=== PATIENT | male | born 2000 | race Caucasian/White ===

== ENCOUNTER 2021-04-16 16:50 | Emergency (ER) | payer OTHER, MEDICAID, SELFPAY ==
--- NOTE | ~2021-04-16 | XR_ITS ---
EXAMINATION: XR CHEST CLINICAL INFORMATION: Chest pain. COMPARISON: None TECHNIQUE: AP view of the chest was obtained. FINDINGS: No significant abnormality is noted involving the heart, lungs, mediastinum, bony thorax or soft tissues. XR/XR chest 1V IMPRESSION: Unremarkable examination.
[2021-04-16 16:52] VITALS: BP 122/70; PULSE 85; RESP 18; TEMP 36.8; O2SAT 97; BMI 20.3
--- NOTE | 2021-04-16 16:56 | ECG_ITS ---
Test Reason : CHEST PAIN Blood Pressure : / mmHG Vent. Rate : 079 BPM Atrial Rate : 079 BPM P-R Int : 146 ms QRS Dur : 090 ms QT Int : 340 ms P-R-T Axes : 074 070 051 degrees QTc Int : 389 ms Normal sinus rhythm with sinus arrhythmia Normal ECG No previous ECGs available Referred By: Generic ED Physician Electronically Signed By:LEE ANN LUTHER
[2021-04-16 17:13] LABS: Hematocrit 48.7 % (42-52); Hemoglobin 16.6 g/dl (14.0-18.0); Mean Corpuscular HGB Conc 34.1 g/dl (31.0-36.0); Mean Corpuscular Hemoglobin 28.8 pg (27.0-33.0); Mean Corpuscular Volume 84.4 fL (80-98); Mean Platelet Volume 10.5 fL (9.4-12.4); Platelet Count 216 X10*3/uL (160-400); Red Blood Count 5.77 X10*6/uL (4.60-5.80); White Blood Count 8.6 X10*3/uL (4.8-10.8)
[2021-04-16 17:27] LABS: Anion Gap 13 (12-20); Blood Urea Nitrogen 10 mg/dL (9-16); Calcium 10.1 mg/dL (8.4-10.2); Carbon Dioxide 26 mmol/L (22-29); Chloride 105 mmol/L (96-108); Creatinine Clr Calc Pharmacy 120.6; Estimated Glomerular Filt Rate > 60; Glucose Random 89 mg/dL (60-115); Potassium 4.4 mmol/L (3.3-5.1); Sodium 140 mmol/L (135-145)
[2021-04-16 17:34] LABS: Troponin-I High Sensitivity < 3.5 ng/L (<3.5-35.0)
[2021-04-16 20:06] VITALS: BP 135/83; PULSE 78; RESP 18; TEMP 36.9; O2SAT 99
--- NOTE | 2021-04-16 20:41 | ED_ITS ---
HPI - Chest Pain General Chief Complaint: Chest Pain Stated Complaint: chest pain Time Seen by Provider: 04/16/21 20:40 History of Present Illness HPI narrative: 20-year-old male presents today with having chest pain that is over the left chest. It is worse with deep breath. There is no diaphoresis. Worse with movement. Lasted for about an hour. No history of diabetes, hypertension, high cholesterol, smoking. Positive marijuana use. No cocaine use. No family history of CAD. Patient from home. No leg swelling. No history of blood clot. No history of cancer Related Data Allergies Allergy/AdvReac Type Severity Reaction Status Date / Time No Known Allergies Allergy Verified 04/16/21 20:40 Review of Systems Review of Systems: No fever no chills No cough no congestion upper respiratory symptoms Positive chest pain on the left side All systems reviewed otherwise negative Yes all other systems are reviewed and are negative [facility] Past Medical History Attestation statement: The following information was validated with the patient. Medical History No known health problems Social History Social History Alcohol intake: never Patient Tobacco Use Status: Never used Tobacco Smoked in Last 30 Days: No Use of substances other than those prescribed or required for medical reasons: Yes Substance Use Type: Marijuana Substance Use Frequency: Daily Any prior treatment program specific to substance use: No Advance Directives: No Advance Directives Information Provided: No Physical Exam Vital Signs: Vital Signs: Last Vital Signs Temp 98.4 F 04/16/21 20:06 Pulse 78 04/16/21 20:06 Resp 18 04/16/21 20:06 BP 135/83 04/16/21 20:06 Pulse Ox 99 04/16/21 20:06 Body Mass Index 20.3 Appearance: Alert. Oriented X3. No acute distress. Eyes: Pupils equal, round and reactive to light. ENT: Pharynx normal. Neck: Normal inspection. Neck supple. No lymph nodes noted. No crepitus CVS: Normal heart rate and rhythm. Pulses normal. Normal S1 and S2 Respiratory: No respiratory distress. Breath sounds normal. No Wheezing. No rales Abdomen: Soft and nontender. No rigidity. No distention. good BS x4 Skin: Skin warm and dry. Normal skin color. Normal skin turgor. Extremities: No lower extremity edema. Neurovascular intact to all extremities. No Lacerations. No Rash Neuro: Oriented X 3. No motor deficit. No sensory deficit. Moving all extermities. No slurred speech MDM - Chest Pain MDM Narrative Medical decision making narrative: Chest x-ray negative for pneumonia pneumothorax. Patient's chest pain atypical for ACS. Cardiac enzymes are neg ative. In the setting of low wrists 20 years old heart score is less than 3. Patient has no evidence for PE. Patient's D-dimer is negative. Unlikely to have a DVT/pe. Will discharge patient home. Currently in stable condition. Differential Diagnosis Differential diagnosis: Likely fracture of rib, pneumothorax, stable angina, unstable angina pectoris, atypical chest pain, st elevation myocardial infarction, costochondritis and chest pain Medical Records Data Attestation: I reviewed the patient's medical records. Lab Data Attestation: I reviewed the patient's lab results. Result diagrams: 04/16/21 17:05 04/16/21 17:05 Labs: Lab Results 04/16/21 04/16/21 04/16/21 Range/Units 17:05 17:05 17:05 WBC 8.6 (4.8-10.8) X10*3/uL RBC 5.77 (4.60-5.80) X10*6/uL Hgb 16.6 (14.0-18.0) g/dl Hct 48.7 (42-52) % MCV 84.4 (80-98) fL MCH 28.8 (27.0-33.0) pg MCHC 34.1 (31.0-36.0) g/dl RDW 13.0 (11.0-16.0) % Plt Count 216 (160-400) X10*3/uL MPV 10.5 (9.4-12.4) fL Absolute Nucleated RBC 0.000 (0.0-0.012) X10*3/uL Nucleated RBC % (auto) 0.0 (0.0-0.2) /100WBC D-Dimer NG/ML Sodium 140 (135-145) mmol/L Potassium 4.4 (3.3-5.1) mmol/L Chloride 105 (96-108) mmol/L Carbon Dioxide 26 (22-29) mmol/L Anion Gap 13 (12-20) BUN 10 (9-16) mg/dL Creatinine 0.94 (0.5-1.4) mg/dL Estim Creat Clear Calc 120.6 Estimated GFR > 60 Random Glucose 89 (60-115) mg/dL Calcium 10.1 (8.4-10.2) mg/dL Troponin I High Sens < 3.5 (<3.5-35.0) ng/L 04/16/21 Range/Units 21:27 WBC (4.8-10.8) X10*3/uL RBC (4.60-5.80) X10*6/uL Hgb (14.0-18.0) g/dl Hct (42-52) % MCV (80-98) fL MCH (27.0-33.0) pg MCHC (31.0-36.0) g/dl RDW (11.0-16.0) % Plt Count (160-400) X10*3/uL MPV (9.4-12.4) fL Absolute Nucleated RBC (0.0-0.012) X10*3/uL Nucleated RBC % (auto) (0.0-0.2) /100WBC D-Dimer < 200 NG/ML Sodium (135-145) mmol/L Potassium (3.3-5.1) mmol/L Chloride (96-108) mmol/L Carbon Dioxide (22-29) mmol/L Anion Gap (12-20) BUN (9-16) mg/dL Creatinine (0.5-1.4) mg/dL Estim Creat Clear Calc Estimated GFR Random Glucose (60-115) mg/dL Calcium (8.4-10.2) mg/dL Troponin I High Sens (<3.5-35.0) ng/L Discharge Plan Discharge Clinical Impression: Atypical chest pain Patient Disposition: Home, Self-Care Instructions: Chest Pain (ED) Referrals: Physician,None [Primary Care Provider] - 2 days (Follow-up with your doctor in 2 days. Worsening condition return)
[2021-04-16 21:45] LABS: D Dimer < 200 NG/ML
== END 2021-04-16 22:11 | disposition home or self-care (01) ==
PROVIDERS: Emergency Provider Emergency Medicine Emergency Medical Services
DX: R07.89 Other chest pain (principal); Z79.899 Other long term (current) drug therapy; F12.90 Cannabis use, unspecified, uncomplicated
CPT/HCPCS: 36415; 71045; 80048; 84484; 85027; 85379; 93005; 99283; 99284